=== PATIENT | female | born 1980 | race Caucasian/White ===

== ENCOUNTER → 2021-12-13 10:51 | Outpatient (CLI) | payer OTHER, SELFPAY | PROVIDERS: PCP Physician Assistant; Referring Provider Physician Assistant; Visit Provider Physician Assistant | DX: M25.511 Pain in right shoulder (principal) ==

== ENCOUNTER → 2022-11-13 07:54 | Outpatient (CLI) | payer OTHER, SELFPAY ==
--- NOTE | 2022-11-13 | DI.ECHO.S_ITS ---
[place] [facility] +---------+ : : [address] : : : : [id number] : : : : Phone: [phone]+ Echocardiogram Report + + :Name: MARSHAL PRESSLEY Study Date: 11/13/2022 Height: 64 in : :[facility] ReadingLocation: Weight: 211 lb : : Gender: Female BSA: 2.0 m2 : :: 1980 Age: 42 yrs BP: 112/79 mmHg: :Reason For Study: CHEST PAIN HR: 60 : :Ordering Physician: BERONICA, : :HESHAM Performed By: YANY TEMPLE : :Referring: HESHAM LOCO : + + Interpretation Summary This is a technically difficult study enhanced with Definity echocontrast. Normal LV size and wall thickness; mildly reduced LV systolic function with global hypokinesis. EF is estimated at 45-50%. Normal chamber sizes. No significant valvular abnormalities. No prior study available for comparison. Procedure: A two-dimensional transthoracic echocardiogram with color flow and Doppler was performed. The study quality was technically adequate. There is no prior echocardiogram noted for this patient. A contrast injection of Definity was performed to improve assessment of LV function. The patient was in normal sinus rhythm during the exam. Left Ventricle: The left ventricle is normal in size and wall thickness. Trabeculae near apex are visualized. No thrombus is observed. Left ventricular systolic function is normal. The ejection fraction is estimated to be 45-50%. Right Ventricle: The right ventricle is normal in size and function. Atria: Both atria are normal in size. There is no Doppler evidence for an interatrial shunt. Mitral Valve: The mitral valve is normal in structure and function. There is no mitral regurgitation noted. Aortic Valve: The aortic valve is trileaflet. The aortic valve opens well. There is no aortic valve stenosis. No aortic regurgitation is present. Tricuspid Valve: The tricuspid valve is normal in structure and function. There is trace tricuspid regurgitation. Pulmonary artery pressures cannot be estimated because of the lack of a measurable TR jet velocity. Pulmonic Valve: The pulmonic valve leaflets are thin and pliable; valve motion is normal. There is no pulmonic valvular regurgitation. Great Vessels: The aortic root is normal size. The ascending aorta is normal in size. The IVC is of normal diameter and collapses greater than 50% with a sniff. This suggests a low right atrial pressure of 3 mm Hg. Pericardium/ Pleura There is no pericardial effusion. There is no pleural effusion. MMode/2D Measurements & Calculations LVIDd: 5.4 cm LVOT diam: 2.1 cm LVIDs: 3.7 cm Ao root diam: 3.1 cm FS: 31.5 % asc Aorta Diam: 3.6 cm IVSd: 0.90 cm LVPWd: 1.2 cm LV louis. diameter/BSA (cm/m^2): 2.7 LV sys. diameter/BSA (cm/m^2): 1.8 LA A2 area: 18.1 cm2 LVLs ap4: 7.2 cm LA A4 area: 18.2 cm2 LA length (vol): 5.5 cm LA vol: 50.6 ml LA vol index: 25.3 ml/m2 LVLd ap2: 8.5 cm TAPSE_phl: 2.7 cm LVLs ap2: 7.6 cm Doppler Measurements & Calculations Ao V2 max: 129.0 cm/sec LVOT Max Govind: 102.0 cm/sec Ao V2 mean: 92.0 cm/sec LV V1 max P.2 mmHg Ao max P.0 mmHg LV V1 VTI: 22.6 cm Ao mean P.0 mmHg GERALDINE(I,D): 2.8 cm2 Ao V2 VTI: 28.4 cm GERALDINE(V,D): 2.7 cm2 sev ratio: 0.80 GERALDINE indexed to BSA (cm^2/m^2): 1.4 MV E max govind: 85.3 cm/sec PA V2 max: 87.5 cm/sec MV A max govind: 79.3 cm/sec PA V2 mean: 65.7 cm/sec MV E/A: 1.1 PA mean P.0 mmHg Med Peak E' Govind: 6.2 cm/sec PA pr(Accel): 21.9 mmHg E/E' med: 13.8 Lat Peak E' Govind: 8.7 cm/sec E/E' lat: 9.8 E/e' average: 11.8 MV dec time: 0.20 sec SV(LVOT): 78.3 ml AV VR_phl: 0.79 GERALDINE(VTI)/BSA_phl: 1.4 MV P1/2t-pr_phl: 58.0 msec Electronically signed by: Nora Herrera M.D. on Reading Physician:11/14/2022 02:04 AM
== END ==
PROVIDERS: PCP Student in an Organized Health Care Education/Training Program; Referring Provider Student in an Organized Health Care Education/Training Program; Visit Provider Student in an Organized Health Care Education/Training Program
DX: R07.89 Other chest pain (principal); R03.0 Elevated blood-pressure reading, without diagnosis of hypertension
CPT/HCPCS: 93306; Q9957

== ENCOUNTER 2023-01-21 08:24 | Day surgery (SDC) | payer OTHER, SELFPAY ==
[2023-01-21 08:39] VITALS: BP 152/98; PULSE 70; RESP 16; TEMP 36.5; O2SAT 96; BMI 37.8
[2023-01-21] MEDS: LACTATED RINGERS 1,000 ML 84 ML IV (08:49)
--- NOTE | 2023-01-21 09:27 | P.HP_ITS ---
History of Present Illness History of Present Illness Date Patient Seen: 01/21/23 Time Patient Seen: 09:27 Chief complaint: EGD Narrative: History of dysphagia Barretts. She is here for evaluation of the dysphagia specifically. No food impactions since we chatted in the office. She remains on pantoprazole. [facility] Social History household members: spouse Smoking Status: Never smoker alcohol intake: never Meds Home Medications and Allergies Home Medications Medication Instructions Recorded Confirmed Type atorvastatin 20 mg tablet 20 mg PO DAILY 01/21/23 01/21/23 History fluoxetine 20 mg tablet 20 mg PO DAILY 01/21/23 01/21/23 History melatonin 10 mg tablet,extended 10 mg PO DAILY 01/21/23 01/21/23 History release multivitamin-ferrous 2 tab PO DAILY 01/21/23 01/21/23 History fumarate-folic acid 18 mg-400 mcg tablet (Centrum Women) pantoprazole 40 mg tablet,delayed 40 mg PO DAILY 01/21/23 01/21/23 History release Allergies Allergy/AdvReac Type Severity Reaction Status Date / Time No Known Drug Allergies Allergy Verified 01/21/23 08:32 Review of Systems Review of Systems ROS: Yes All systems reviewed with the patient and are negative except as otherwise documented Exam Vital Signs (past 8 hours): - 01/21/23 08:39 Temperature 97.7 F Pulse Rate 70 Respiratory Rate 16 Blood Pressure 152/98 H Pulse Oximetry 96 Oxygen Delivery Method Room Air Oxygen Delivery Method Room Air Const General: cooperative HENMT Head: normal to inspection Eyes General: appearance normal, both eyes and all related structures Neck Neck: normal visual inspection Chest Chest: normal inspection of the chest Resp Effort & Inspection: normal respiratory effort Cardio Rate: regular rate GI Inspection: normal to inspection Skin General: no rashes or lesions noted Neuro General: patient alert and patient awake Extrem General: normal to inspection and no pedal edema Psych Appearance: grossly normal Assessment & Plan Assessment & Plan narrative: 42-year-old female with dysphagia. She has a history of reflux and Barretts. EGD and possible dilatation is pursued today.
--- NOTE | 2023-01-21 09:28 | PM.PREOP ---
Pre-operative Note Interval Note History & Physical reviewed/Exam performed by Physician: Yes Changes to H&P: No ASA Class (for procedural sedation): II
--- NOTE | 2023-01-21 09:41 | PM.OP.EGD ---
Operative Date/Time/Diagnoses Date of procedure: 01/21/23 Time of procedure: 09:41 Pre-op diagnosis: Dysphagia with a history of Barretts Post-op diagnosis: same Procedure & Clinicians Study performed: EGD Same procedure as scheduled: Yes Indications: Dysphagia with a history of Barretts Surgeon: Joseph Silverman Procedure Notes SCOAP/Timeout: Done Procedure in detail: After the risks and benefits were explained, written and verbal informed consent was obtained. The patient was brought into the procedure room and placed into the left lateral decubitus position. Please see anesthesia notes for sedation details. The scope was introduced into the mouth through the bite block and advanced under direct visualization to the 2nd portion of the duodenum. The scope was slowly withdrawn carefully examining the mucosa for any defects or lesions. Retroflexed views were accomplished in the stomach. The stomach was decompressed, the scope was then removed from the patient who tolerated the procedure well. Sedation minutes: 7 Specimen(s): none sent Complications: none Impression: 1. Duodenum: No pathology throughout. 2. Stomach: No ulcers no mass lesions no outlet obstruction. Retroflexed views of the LES were fairly unremarkable. 3. Esophagus: There was a small sliding hiatal hernia. GE junction was judged to be at approximately 34 cm from the incisors. The patient had fairly circumferential Barretts up to about 25 cm from the incisors. I did not identify any stricturing. No rings no mass lesions no mechanical cause for dysphagia. The patient was not due for Barretts biopsies so I elected to forego these today. There was no target for dilatation. Endoscopic diagnosis 1. Small hiatal hernia 2. C9 M 9 Barretts Post-procedure Plan for aftercare: 1. Continue pantoprazole. 2. Continue excellent mastication with all food and swallow in small portions. 3. Repeat EGD and colonoscopy at age 44 for Quiroz's surveillance and colon cancer screening. Disposition: PACU
[2023-01-21 09:42] VITALS: BP 125/80; PULSE 72; RESP 18; TEMP 36.1; O2SAT 90
[2023-01-21 09:47] VITALS: BP 133/80; PULSE 65; RESP 18; O2SAT 95
[2023-01-21 09:54] VITALS: BP 126/87; PULSE 65; RESP 12; TEMP 36.1; O2SAT 94
[2023-01-21 09:58] VITALS: BP 133/86; PULSE 62; RESP 14; TEMP 36.1; O2SAT 94
== END 2023-01-21 10:13 | disposition home or self-care (01) ==
PROVIDERS: PCP Student in an Organized Health Care Education/Training Program; Referring Provider Internal Medicine Gastroenterology; Visit Provider Internal Medicine Gastroenterology
PROC: 0DJ08ZZ Inspection of Upper Intestinal Tract, Via Natural or Artificial Opening Endoscopic (ICD-10-PCS; CPT 43235; principal; 2023-01-21 09:30)
DX: K22.70 Barrett's esophagus without dysplasia (principal); K44.9 Diaphragmatic hernia without obstruction or gangrene
CPT/HCPCS: 43235; J2704

== ENCOUNTER → 2023-11-17 10:41 | Outpatient (CLI) | payer OTHER, SELFPAY ==
--- NOTE | 2023-11-17 10:43 | DI.US.S_ITS ---
PROCEDURE: US ABDOMEN LIMITED INDICATIONS: EPIGASTRIC PAIN TECHNIQUE: Real-time scanning was performed of the abdominal and retroperitoneal organs, with image documentation. COMPARISON: None. FINDINGS: Liver: Liver is borderline enlarged in size and measures 17.7 cm in length. Diffusely increased liver parenchymal echotexture is seen. No discrete hepatic lesion. Gallbladder: There is no gallstone. No gallbladder wall thickening or pericholecystic fluid. No sonographic Combs's sign. Biliary ducts: Intrahepatic bile ducts are non-dilated. Extrahepatic bile duct caliber measures 6.7 mm. Normal is 6-7 mm or less in diameter, or 10 mm or less post-cholecystectomy. Pancreas: Visualized portions of the pancreas are sonographically normal. Miscellaneous: No free abdominal fluid. IMPRESSION: Borderline hepatomegaly and hepatic steatosis. No discrete hepatic lesion. The rest of the exam is unremarkable. Dictated by: Jax Bhatt M.D. on 11/17/2023 at 12:06 Approved by: Jax Bhatt M.D. on 11/17/2023 at 12:08
--- NOTE | 2023-11-17 10:43 | DI.RAD.S_ITS ---
PROCEDURE: FL UPPER GI SERIES INDICATIONS: Dysphagia, unspecified; Epigastric pain COMPARISON: None. FINDINGS: KUB: Preprocedural assistant auditor film demonstrates a normal bowel gas pattern. No suspicious abdominal calcifications. Visualized solid organ contours appear normal. Bony structures appear unremarkable. Esophagus: Esophageal mucosa is normal on air-contrast views. On single-contrast views, there is normal esophageal peristalsis. No strictures, extrinsic mass effects, or diverticula. There is a small sliding hiatal hernia with significant gastroesophageal reflux and contrast reflux to proximal esophageal lumen. There is normal transit of a calibrated barium tablet through the esophagus. Stomach: The stomach is normally distensible, with normal rugal fold thickness. No mucosal masses or ulcers. Pylorus and duodenal bulb appear normal in morphology. Duodenal folds are normal in thickness as well. IMPRESSION: 1. Small sliding hiatal hernia. Severe gastroesophageal reflux with contrast reflux to proximal esophageal lumen. 2. No ulceration or intraluminal filling defect. No external compression or high-grade stricture. Dictated by: Jax Bhatt M.D. on 11/17/2023 at 13:47 Approved by: Jax Bhatt M.D. on 11/17/2023 at 13:50
== END ==
PROVIDERS: Referring Provider Surgery; Visit Provider Surgery
DX: K44.9 Diaphragmatic hernia without obstruction or gangrene (principal); K76.0 Fatty (change of) liver, not elsewhere classified; R10.13 Epigastric pain; K21.9 Gastro-esophageal reflux disease without esophagitis; R13.10 Dysphagia, unspecified; E66.01 Morbid (severe) obesity due to excess calories; Z68.41 Body mass index [BMI] 40.0-44.9, adult
CPT/HCPCS: 74240; 76705